=== PATIENT | female | born 1960 | race Caucasian/White ===

== ENCOUNTER 2019-01-09 17:38 | Observation (INO) | payer SELFPAY ==
[~2019-01-09 17:38] MED LIST: ISOVUE-370 76%-LOCM 1 ML ONE
[2019-01-09] MEDS ORDERED: Aspirin Chewable 81 MG TAB ONE (18:09)
[2019-01-09 18:10] LABS: #Basophils 0.1 thou/uL (0.0-0.2); #Eosinphils 0.2 thou/uL (0.0-0.7); #Monocytes 0.6 thou/uL (0.11-0.59); #Neutrophils 2.5 thou/uL (1.40-6.50); %Basophils 1.2 % (0.0-1.0); %Eosinophils 2.7 % (0.0-10.0); %Lymphocytes 46.8 % (21.0-51.0); %Neutrophils 40.4 % (42.0-75.0); Hemoglobin 15.2 g/dL (12.0-16.0); Mean Corpuscular HGB CONC 32.2 g/dL (32.0-36.0); Mean Corpuscular Hemoglobin 30.6 pg (27.0-31.0); Mean Corpuscular Volume 94.9 fL (78.0-98.0); Mean Platelet Volume 7.8 fL (7.4-10.4); Platelet Count 277 thou/uL (130-400); RBC Distribution Width 12.2 % (11.5-14.5); Red Blood Cell (RBC) Count 4.98 mill/uL (4.20-5.40); White Blood Cell (WBC) Count 6.3 thou/uL (4.8-10.8)
[2019-01-09 19:17] LABS: Albumin 4.1 g/dL (3.5-5.0)
[2019-01-09 19:18] LABS: Chloride 102 mmol/L (98-107); Potassium 5.9 mmol/L (3.5-5.1); Sodium 136 mmol/L (136-145)
[2019-01-09 19:19] LABS: Calcium 9.9 mg/dL (7.8-10.44)
[2019-01-09 19:20] LABS: Globulin 5.2 g/dL (2.4-3.5); Glucose 81 mg/dL (70-105); Protein, Total 9.3 g/dL (6.0-8.3)
[2019-01-09 19:21] LABS: Anion Gap 16 mmol/L (10-20); Bilirubin, Total 0.3 mg/dL (0.2-1.2); Carbon Dioxide 24 mmol/L (22-29)
[2019-01-09 19:23] LABS: Alkaline Phosphatase 53 U/L (40-150); Calc. Creatinine Clearance 0 mL/min (70-130); Estimated GFR-MDRD 76
[2019-01-09 19:24] LABS: BUN (Urea Nitrogen) 15 mg/dL (9.8-20.1)
[2019-01-09 19:25] LABS: ALT (SGPT) 29 U/L (8-55); AST (SGOT) 44 U/L (5-34)
[2019-01-09 19:26] LABS: CK (CPK) 69 U/L (29-168); Lipase 45 U/L (8-78)
--- NOTE | 2019-01-09 20:13 | RAD ---
CHEST ONE VIEW 01/09/19 HISTORY: Chest pain. Dyspnea. FINDINGS: No comparison. The cardiac silhouette is magnified by projection. Pulmonary vsaculature is unremarkab le. Lungs are hyperinflated. Mediastinum is midline with aortic calcification. Lobular density projecting over the right lower lobe has the appearance of a mass that is 3.1 cm obli que diameter. Old healed right posterolateral rib fractures are also seen near the level of the abnor mality. Left lung is clear. No evidence of pneumothorax. IMPRESSION: Probable right lower lung nodule. Please consider CT evaluation. Pulmonary hyperinflation. Atherosclerosis. POS: [facility]
[2019-01-09] MEDS ORDERED: Morphine 2 MG/ML SYRINGE ONE (20:50)
[2019-01-09] MEDS ORDERED: Acetaminophen 325 MG TAB PO PRN (20:51)
[2019-01-09] MEDS ORDERED: Ondansetron PF 4 MG/2 ML Vial IVP PRN (20:51)
[2019-01-09] MEDS ORDERED: Ondansetron ODT 4 MG TAB PO PRN (20:51)
[2019-01-09] MEDS ORDERED: hydrALAZINE 20 MG/ML VIAL SLOW IVP PRN (20:59)
[2019-01-09] MEDS ORDERED: traMADol HCl 50 MG TAB PO PRN (21:00)
[2019-01-09] MEDS ORDERED: Nitroglycerin 0.4 MG TAB (25 Tab Bottle) SL PRN (21:00)
[2019-01-09] MEDS ORDERED: Nicotine 14 MG PATCH TOP SCH (21:15)
[2019-01-09 21:43] LABS: Troponin I Less than 0.010 ng/mL (< 0.028)
[2019-01-09 22:15] VITALS: BMI 25.3
--- NOTE | 2019-01-10 | CT ---
CTA CHEST WITH IV CONTRAST 01/09/19 HISTORY: Lung mass. FINDINGS: Centered within the central aspect of the right lower lobe is a spiculated lobular mass measuring up to 2.1 x 1.8 cm greatest diameters. A 1.0 cm spiculated mass lies immediately inferior and posterior to it. Tiny nonspecific subpleural nodules are present within each lung. The lungs are hyperinflated with sc attered interstitial thickening. No pleural fluid or mediastinal adenopathy. Prominent calcification throughout the arterial structures. Adrenal glands have a normal appearance. IMPRESSION: Spiculated right lower lobe lung mass with nearby satellite nodule. Tiny nonspecific subpleural nodules are too small to characterize, likely not related to metastatic d isease. COPD. Atherosclerosis. Please consider pulmonary medicine evaluation. POS: [facility]
[2019-01-10 03:31] LABS: #Eosinphils 0.2 thou/uL (0.0-0.7); #Lymphocytes 2.7 thou/uL (1.20-3.40); #Monocytes 0.5 thou/uL (0.11-0.59); #Neutrophils 2.5 thou/uL (1.40-6.50); %Basophils 0.7 % (0.0-1.0); %Eosinophils 2.6 % (0.0-10.0); %Lymphocytes 46.1 % (21.0-51.0); %Monocytes 8.7 % (0.0-10.0); %Neutrophils 41.9 % (42.0-75.0); Hemoglobin 14.6 g/dL (12.0-16.0); Mean Corpuscular HGB CONC 32.1 g/dL (32.0-36.0); Mean Corpuscular Hemoglobin 31.2 pg (27.0-31.0); Mean Corpuscular Volume 97.2 fL (78.0-98.0); Mean Platelet Volume 7.6 fL (7.4-10.4); Platelet Count 258 thou/uL (130-400); RBC Distribution Width 12.3 % (11.5-14.5); Red Blood Cell (RBC) Count 4.68 mill/uL (4.20-5.40); White Blood Cell (WBC) Count 5.9 thou/uL (4.8-10.8)
--- NOTE | 2019-01-10 03:36 | HP ---
PRIMARY CARE PHYSICIAN: Patient goes to [facility]. CODE STATUS: Full code. TIME OF EVALUATION: 8:45 p.m. CHIEF COMPLAINT: Chest pain. HISTORY OF PRESENT ILLNESS: This is a 58-year-old female patient with past medical history of long-term smoking. No other significant past medical problems. The patient came to the hospital after having chest pain that was on and off, has been going on for the past few days, especially for the past 12 hours. Not getting better. It is retrosternal in the middle of the chest. No clear triggers. No alleviating factors. Symptoms reportedly were 6/10. The patient has a strong history of coronary artery disease in the family, presented with hypertension. REVIEW OF SYSTEMS: CONSTITUTIONAL: No fever, chills, or generalized weakness. RESPIRATORY: No cough, sputum production, or shortness of breath. CARDIOVASCULAR: The patient has chest pain. No palpitation. GASTROINTESTINAL: No nausea, vomiting, diarrhea, or abdominal pain. 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 GENITOURINARY: No burning on urination. EXTREMITIES: No leg swelling. All other systems were reviewed and negative except for the findings mentioned above. PAST MEDICAL HISTORY: Hypertension, breast nodule. PAST SURGICAL HISTORY: Partial hysterectomy. PSYCH HISTORY: Anxiety. FAMILY HISTORY: Reviewed, noncontributory for current presentation. SOCIAL HISTORY: The patient smokes on a daily basis, half a pack per day. Has smoked for the past 30 years. ALLERGIES: NO KNOWN DRUG ALLERGIES REPORTED. MEDICATIONS: Lisinopril, hydrochlorothiazide, fluoxetine. PHYSICAL EXAMINATION: VITAL SIGNS: On presentation, blood pressure 128/80 with heart rate 77, respiratory rate was 16, temperature 97.8, pain was 6/10, oxygen saturation was 95 on room air. GENERAL APPEARANCE: The patient is alert, oriented, not in acute distress. HEENT: Eyes, normal conjunctivae. Moist oral mucosa. Anicteric. No JVD. RESPIRATORY: Bilateral air entry. No rales. No wheezes. Symmetric expansion. CARDIOVASCULAR: Normal rate. Regular rhythm. No murmurs. No gallop. No edema. ABDOMEN: Soft. Normal bowel sounds. MUSCULOSKELETAL: Baseline range of motion and strength. No tenderness. SKIN: Warm, intact. No pallor, rash, or redness. Peripheral pulses are present. Capillary refill seems to intact. NEURO: No evidence of any new focal weakness. Baseline speech. Cranial nerves seems to be intact. PSYCH: The patient is in good mood. No anxiety. Optimal judgment. IMAGING STUDIES: EKG was reviewed. The patient has normal sinus rhythm with ventricular rate 71, MN 134, QRS 70, and QT corrected 404. Chest CT was reviewed. The patient has a spiculated right lower lobe lung mass with nearby satellite nodule, finding nonspecific suprahilar nodules are too small to characterize, likely not related to metastatic disease. COPD. Atherosclerosis. Consider pulmonary medicine evaluation. LABORATORY DATA: Labs were reviewed. Hematology; white count 6.3, hemoglobin 15.2, MCV 94.9, platelet count 277. Sodium 136, potassium 5.9, chloride 102, carbon dioxide was 24, anion gap 16, BUN 15, creatinine 0.78, GFR 76, glucose 81, calcium 9.9, total bilirubin 0.3, AST 44, ALT 29, alkaline phosphatase 53, CK 69. Troponin was negative x2. Serum total protein 9.3, albumin 4.1, globulin 5.2, albumin globulin ratio is 0.8, lipase 45. ASSESSMENT AND PLAN: The patient is placed in the hospital with following medical problems: 1. Chest pain, rule out acute coronary syndrome. The patient has strong family history of coronary artery disease with brothers having heart problems at young age. We will trend troponins, we will place the patient on tele, we will do stress test in the morning if initial workup is negative. 2. Right lower lobe lung mass, might need pulmonary consult for further workup plan. 3. The patient might have undiagnosed chronic obstructive pulmonary disease as seen on chest x-ray in long-term smoking. Does not seem to be in exacerbation at this point. 4. Uncontrolled hypertension. The patient presented with systolic blood pressure of 171 that is hypertensive. We will start the patient on some BP medications. We will certainly need to follow up the patient with primary care doctor. 5. Deep venous thrombosis prophylaxis. Job ID: [id number] [facility]ENTER[facility]
[2019-01-10 03:49] LABS: Anion Gap 14 mmol/L (10-20); BUN (Urea Nitrogen) 15 mg/dL (9.8-20.1); Calc. Creatinine Clearance 72 mL/min (70-130); Calcium 9.5 mg/dL (7.8-10.44); Carbon Dioxide 22 mmol/L (22-29); Chloride 105 mmol/L (98-107); Estimated GFR-MDRD 85; Glucose 101 mg/dL (70-105); Potassium 3.8 mmol/L (3.5-5.1); Sodium 137 mmol/L (136-145)
[2019-01-10 03:52] LABS: Troponin I Less than 0.010 ng/mL (< 0.028)
[2019-01-10] MEDS ORDERED: Enoxaparin Sodium 40 MG/0.4 ML SYRINGE SC SCH (09:00)
[2019-01-10] MEDS ORDERED: Regadenoson 0.4 MG/5 ML SYRINGE ONE (11:17)
--- NOTE | 2019-01-10 12:29 | NM ---
CARDIAC SPECT: HISTORY: A 58-year-old female with chest pain, DVT, hypertension, smoker. TECHNIQUE: A myocardial perfusion scan was performed using the single-isotope 1-day protocol with Technetium 99m sestamibi. Ten mCi were injected intravenously for the rest exam followed by 28 mCi for the stress study. Exercise stress was monitored and interpreted by Dr. Durant. FINDINGS: Homogeneous tracer distribution was seen in the myocardial segments on stress and rest images without fixed or reversible defects. GATED SPECT LVEF: 86%. WALL MOTION EXAM: Normal. IMPRESSION: Normal myocardial perfusion scan. POS: OFF
[2019-01-10 12:45] VITALS: BP 145/65; TEMP 98.1
--- NOTE | 2019-01-11 05:07 | DIS ---
DATE OF ADMISSION: 01/09/2019 DATE OF DISCHARGE: 01/10/2019 ALLERGIES: NO KNOWN DRUG ALLERGIES. CHIEF COMPLAINT: Chest pain. FINAL DIAGNOSES: 1. Chest pain, atypical, acute coronary syndrome ruled out. Stress test negative for reversible ischemia. Normal ejection fraction. 2. Right lower lobe lung mass, spiculated, concerning for carcinoma. 3. Tobacco abuse. 4. Hypertension. LABORATORY RESULTS: White blood cell count 5.9, hemoglobin 14.6, hematocrit 45.5. Sodium 137, potassium 3.8, chloride 105, BUN 15, creatinine 0.71. Serial troponin negative x3. IMAGING RESULTS: Chest CT performed on January 09, 2019, shows a spiculated right lower lobe lung mass with a nearby satellite nodule measuring 2.1 x 1.8 at its greatest diameter. Myocardial perfusion imaging performed on January 10 showed normal tracer distribution in all the myocardial segments on stress and rest with normal EF of 86%. CONSULTATION: None. VITAL SIGNS: Blood pressure 145/65, pulse 74, respirations 18, O2 saturation is 98% on room air. HOSPITAL COURSE: The patient is a pleasant 58-year-old female with past medical history significant for a long history of tobacco abuse, approximately 15 pack year history, and hypertension, who presented to the hospital with complaints of intermittent chest pain that has been off and on for the past few days. She describes the pain as both sharp and stabbing in nature. There were no other associated symptoms with this, and the patient specifically denies any shortness of breath, nausea, vomiting, diaphoresis, or palpitations. She presented to the ER for further workup and treatment. On arrival, workup did include an EKG, which was showed no dynamic ST- or T-wave changes. She did have a chest x-ray, which was positive for a right lung mass and then had a CT scan of the lungs, which confirmed a right lower lobe spiculated lung mass. She underwent stress testing, which was normal. The patient has ambulated around her room without issue. At this time, she denies any further chest pain. She has no shortness of breath. Her potassium was noted to be elevated on arrival at 5.9, and her lisinopril has been held, and potassium did trend down. PHYSICAL EXAMINATION: GENERAL: This is a thin female who appears older than her stated age, she is resting comfortably in no acute distress. HEENT: Head is atraumatic, normocephalic. Mucous membranes are moist. Poor dentition. NECK: Supple. No lymphadenopathy. No JVD. Trachea is midline. RESPIRATORY: Regular respiratory rate and pattern, she does have overall decreased vesicular breath sounds with occasional rhonchi noted. CV: S1 and S2. Regular rate and rhythm. No appreciable murmurs, rubs, or gallops. GI: Soft, nontender. Positive bowel sounds. PERIPHERAL VASCULAR: No lower extremity pitting edema. Trace DP pulse is noted bilaterally. Both lower extremities are warm and well perfused. MUSCULOSKELETAL: No joint effusion or swelling. NEUROLOGIC: Cranial nerves 2 through 12 are grossly intact. The patient is nonfocal. SKIN: Warm and dry. No rashes. CONDITION AT DISCHARGE: Stable. DISCHARGE MEDICATIONS: 1. Fluoxetine 10 mg capsule one tablet p.o. daily. 2. Hydrochlorothiazide 12.5 mg capsule one tablet p.o. daily. Please note that her lisinopril has been discontinued in the light of hyperkalemia. New medication will be amlodipine 5 mg one tablet p.o. daily. DISCHARGE DISPOSITION: Home. PLAN: The findings of the patient's CT scan have been discussed with her in detail. She already has a followup appointment scheduled with [facility] on Sunday to discuss all of these findings and further referrals to pulmonology and for biopsy and treatment. She will continue aggressive risk factor modification as well as tobacco cessation. All of the patient's questions have been answered to their satisfaction. Care discussed with Dr. Staples, who agrees with the above. Job ID: [id number]
--- NOTE | 2019-01-11 22:30 | EKG ---
Test Reason : CHEST PAIN Blood Pressure : / mmHG Vent. Rate : 071 BPM Atrial Rate : 071 BPM P-R Int : 134 ms QRS Dur : 070 ms QT Int : 372 ms P-R-T Axes : 076 000 054 degrees QTc Int : 404 ms Normal sinus rhythm Possible Left atrial enlargement Borderline ECG Confirmed by RYANN LI D.O. ([id number]), publication editor PATRICIA BRADY ([id number]) on 01/11/2019 10:29:34 PM Referred By: ROBERTO Confirmed By:RYANN LI D.O.
== END 2019-01-10 14:31 | disposition home or self-care (01) ==
LOC: ERS 17:38 → 2SW 20:37
PROVIDERS: ADMIT Hospitalist; ATTEND Hospitalist
DX: R07.89 Other chest pain (principal); I10 Essential (primary) hypertension; R91.8 Other nonspecific abnormal finding of lung field; F17.210 Nicotine dependence, cigarettes, uncomplicated; F41.9 Anxiety disorder, unspecified; Z79.899 Other long term (current) drug therapy
CPT/HCPCS: 36415; 71045; 71260; 78452; 80048; 80053; 82550; 83690; 84484; 85025; 90471; 90732; 93005; 93017; 94760; 96372; 96374; A9500; G0009; G0378; J1650; J2270; J2785; Q9966